=== PATIENT | male | born 1955 | race Caucasian/White ===

== ENCOUNTER → 2016-11-01 | Outpatient (CLI) | payer MEDICARE ==
[2016-11-01 12:47] VITALS: BP 113/78; PULSE 59; RESP 16; TEMP 98.2
--- NOTE | 2016-11-01 13:36 | P.PN ---
Subjective This is follow-up visit for this patient with a history of severe and chronic mid back pain secondary to the thoracic spondylosis, we have done interventional pain management injection, thoracic epidural steroid injections, and is currently on pain medications 1- Mobic 7.5 mg twice a day 2-[place] 5/325 every 6 hours Patient denies any side effects of the medication, denies excessive drowsiness or sleepiness, denies suicidal ideation, and reports that the current pain medication is NOT helping To control the pain and improve activity of daily living the VAS /10 without the medications ,and it drope to /10 with the medication Physical Examinations : 1-Constitutiona : Cooperative , not in acute distress . 2-HEENT : nech ; supple , no Lymphadenopathy , no Thyromegaly , normal thyroid size . eyes : no ptosis , no icterus, no photophobia . ENT : normal of hearing , normal oropharynx , no Thrush . 3- Respiratory : Chest clear to auscultations Bilaterally , no wheezing , no Rhonchi . 4- Cardiovascular : regular rate and rhythem , S1 , S2 , no S3 , no S4. 5- Gastrointestinal : abdomen soft no tenderness , bowel sounds positive all four quadrents , no organomegally . 6- Genitourinary : Defferred . 7- neurologic : Cranial nerve II to XII intact , no focal neurological deffecit . 8-psychatric : alert , oriented X 3 , appropriate affect , intact judgment and insight . 9-Lymphatic : no Lymphadenopathy . 10- musculoskeltal : exams of the thoracic spine = motor strength normal bilateral upper extremities facet loading test positive in the mid thoracic area area positive. exams of the Lumber spine = motor strength lower extremities ,thigh and legs .5/5 deep tendon reflexes : normal Knee Jerk , normal ankle Jerk . Assessment and plan = - Chronic mid back pain secondary toThoracic spondylosis with facet arthropathy without myelopathy , -chronic and current use of high-risk medication (Opioids). The patient was counseled about risk of opioid use, psychological risk associated with opioids and was orally counseled to not overuse , abuse , divert ,or sell dictations to take medications as prescribed only , and to restore medication in safe location , and patient counseled against driving while using narcotic medications, and also not to use alcohol or any illicit recreational drugs the patient's verbalized understanding that the lack of compliance will result in failure to renew narcotic prescription and possible discharge from the clinic - diagnoses, prognosis, and treatment options including but not limited to physical therapy, surgical interventions, interventional therapies and medication management including narcotics and adjuvant medication were discussed with the patient and all questions answered to the patient's satisfaction. -medication refile =1-Mobic 7.5 mg twice a day dispense 60 with 1 refill 2- [place] 7.5/325 every 6 hours dispensed 90 with 1 refill 3-start patient on Neurontin 100 mg every 8 hours dispense 90 with 1 refill Objective - Vital Signs Vital signs: Vital Signs Temp 98.2 F 11/01/16 12:40 Pulse 59 L 11/01/16 12:40 Resp 16 11/01/16 12:40 BP 113/78 11/01/16 12:40 Pulse Ox 97 11/01/16 12:40 Intake & Output 10/31/16 11/01/16 11/01/16 18:59 06:59 18:59 Weight 81.193 kg
== END | disposition home or self-care (01) ==
LOC: PNWHC3 12:23
PROVIDERS: ATTEND Specialist
DX: M47.894 Other spondylosis, thoracic region (principal); M46.94 Unspecified inflammatory spondylopathy, thoracic region; Z79.891 Long term (current) use of opiate analgesic
CPT/HCPCS: 99211

== ENCOUNTER 2020-08-21 07:58 | Day surgery (SDC) | payer MEDICARE ==
[2020-08-19 09:58] VITALS: BMI 30.2
--- NOTE | 2020-08-21 07:07 | P.GSHP ---
History of Present Illness H&P Date: 08/21/20 CHIEF COMPLAINT: Colon screen HISTORY OF PRESENT ILLNESS: The patient is a 65-year-old male who presents for colon screen. Lower endoscopy was offered for further evaluation and management. PAST MEDICAL HISTORY: Please see list. PAST SURGICAL HISTORY: Please see list. MEDICATIONS: Please see list. ALLERGIES: Please see list. SOCIAL HISTORY: No illicit drug use FAMILY HISTORY: No reports of Crohn disease or ulcerative colitis. REVIEW OF ORGAN SYSTEMS: CONSTITUTIONAL: No reports of fevers or chills. PHYSICAL EXAM: VITAL SIGNS: Stable GENERAL: Well-developed pleasant in no acute distress. HEENT: No scleral icterus. Extraocular movements grossly intact. Moist buccal mucosa. NECK: Supple without lymphadenopathy. CHEST: Unlabored respirations. Equal bilateral excursions. CARDIOVASCULAR: Regular rate and rhythm. Distal 2+ pulses. ABDOMEN: Soft, nontender, nondistended. MUSCULOSKELETAL: No clubbing, cyanosis, or edema. ASSESSMENT: 1. Colon screen. PLAN: 1. Recommend proceeding with a lower endoscopy Past Medical History Past Medical History: GERD/Reflux, Hyperlipidemia, Skin Disorder Additional Past Medical History / Comment(s): "rapid heart rate one time", fell in 2012 and landed on head- fx c1 and c2 and collapsed c5 , or c6, hiatal hernia, rash on fingers, recent infectiion on rt little toe-on rx, History of Any Multi-Drug Resistant Organisms: MRSA Date of last positivie culture/infection: 2009 MDRO Source:: finger Past Surgical History: Cardiac Ablation, Orthopedic Surgery Additional Past Surgical History / Comment(s): rt knee surgery , EGD with dilation, Pain Clinic Procedures Past Anesthesia/Blood Transfusion Reactions: No Reported Reaction Smoking Status: Former smoker - Past Family History Mother Family Medical History: No Reported History Medications and Allergies Home Medications Medication Instructions Recorded Confirmed Type Omeprazole [PriLOSEC] 20 mg PO DAILY 10/29/15 08/19/20 History Metoprolol Tartrate [Lopressor] 25 mg PO QAM 11/27/15 08/19/20 History Atorvastatin [Lipitor] 40 mg PO DAILY 08/19/20 08/19/20 History Hydrocodone/Acetaminophen [[place] 1 tab PO BID PRN 08/19/20 08/19/20 History 7.5-325] Meloxicam [Mobic] 7.5 mg PO BID PRN 08/19/20 08/19/20 History Sulfamethox-Tmp 800-160Mg [Bactrim 1 tab PO Q12HR 08/19/20 08/19/20 History DS 800-160 mg] Ubidecarenone [Co Q-10] 100 mg PO DAILY 08/19/20 08/19/20 History Allergies Allergy/AdvReac Type Severity Reaction Status Date / Time No Known Allergies Allergy Verified 08/19/20 09:45
[~2020-08-21 07:58] MED LIST: LACTATED RINGERS 1,000 ML IV SCH
[2020-08-21 08:21] VITALS: TEMP 97.3
[2020-08-21] MEDS ORDERED: PROPOFOL 10 MG/ML 20 ML VIAL IV ONE (09:07)
[2020-08-21] MEDS ORDERED: LIDOCAINE 1% INJ 10MG/ML (20 ML MDV) ONE (09:07)
--- NOTE | 2020-08-21 09:47 | P.PCN ---
Date of Procedure: 08/21/20 Description of Procedure: PREOPERATIVE DIAGNOSIS: Personal history of colon polyps POSTOPERATIVE DIAGNOSIS: Personal history of colon polyps Tubular adenoma descending colon Tubular adenoma sigmoid colon Sigmoid diverticulosis Internal hemorrhoids, grade 2 OPERATION: Colonoscopy to the ileocecal valve and appendiceal orifice, cecum Colonoscopy with cold forceps biopsies SURGEON: Nidia Abad MD. ANESTHESIA: MAC. INDICATIONS: The patient is an 65-year-old male who personal history of colon polyps. Last colonoscopy over 5 years. Benefits and risks were described and informed consent was obtained. DESCRIPTION OF PROCEDURE: The patient had undergone Suprep. He had been brought into the operating room and laid in the left lateral decubitus position. After adequate intravenous sedation, the rectum was examined with 2% lidocaine jelly. The prostate fossa was unremarkable. External hemorrhoids were encountered. The rectal tone was within normal limits. No lesions were palpated in the rectal vault. An Olympus colonoscope was advanced until the cecum, ileocecal valve and appendiceal orifice were clearly viewed. The prep was good. Sigmoid diverticulosis was encountered. Multiple colonic polyps were found. No evidence of focal colitis was found. Retroflexion of the scope demonstrated grade 2 internal hemorrhoids without active bleeding or inflammation. The colon was desufflated. The patient had tolerated the procedure well. Withdrawal time was over 6 minutes. FINDINGS: Aronchick preparation quality scale 1 (1-5) Internal hemorrhoids, grade 2 External hemorrhoids, grade 2 No arteriovenous malformations. Sigmoid diverticulosis Removal of 2 polyps: - Cold forceps biopsy at 20 cm from the anal verge, 4 mm polyp, sigmoid colon - Cold forceps biopsy at 40 cm from the anal verge, 5 mm polyp, descending colon No focal colitis. RECOMMENDATIONS: Repeat colonoscopy 3 years, 2022 Plan - Discharge Summary Discharge Rx Participant: No New Discharge Prescriptions: Continue Omeprazole [PriLOSEC] 20 mg PO DAILY Metoprolol Tartrate [Lopressor] 25 mg PO QAM Atorvastatin [Lipitor] 40 mg PO DAILY Sulfamethox-Tmp 800-160Mg [Bactrim DS 800-160 mg] 1 tab PO Q12HR Hydrocodone/Acetaminophen [[place] 7.5-325] 1 tab PO BID PRN PRN Reason: Pain Meloxicam [Mobic] 7.5 mg PO BID PRN PRN Reason: Pain Ubidecarenone [Co Q-10] 100 mg PO DAILY Discharge Medication List Omeprazole [PriLOSEC] 20 mg PO DAILY 10/29/15 [History] Metoprolol Tartrate [Lopressor] 25 mg PO QAM 11/27/15 [History] Atorvastatin [Lipitor] 40 mg PO DAILY 08/19/20 [History] Hydrocodone/Acetaminophen [[place] 7.5-325] 1 tab PO BID PRN 08/19/20 [History] Meloxicam [Mobic] 7.5 mg PO BID PRN 08/19/20 [History] Sulfamethox-Tmp 800-160Mg [Bactrim DS 800-160 mg] 1 tab PO Q12HR 08/19/20 [History] Ubidecarenone [Co Q-10] 100 mg PO DAILY 08/19/20 [History] Follow up Appointment(s)/Referral(s): Nidia Abad MD [STAFF PHYSICIAN] - As Needed Patient Instructions/Handouts: Colorectal Polyps (DC), Diverticulosis Diet (GEN), Diverticulosis (DC) Activity/Diet/Wound Care/Special Instructions: Repeat colonoscopy 3 years, 2022 Discharge Disposition: HOME SELF-CARE
[2020-08-21 10:07] VITALS: BP 120/81; PULSE 70; RESP 20
== END 2020-08-21 10:08 | disposition home or self-care (01) ==
LOC: ORWHC2ENDO 07:58
PROVIDERS: ATTEND Surgery Plastic and Reconstructive Surgery
DX: Z12.11 Encounter for screening for malignant neoplasm of colon (principal); D12.4 Benign neoplasm of descending colon; D12.5 Benign neoplasm of sigmoid colon; K57.30 Diverticulosis of large intestine without perforation or abscess without bleeding; K64.4 Residual hemorrhoidal skin tags; K64.1 Second degree hemorrhoids; Z86.010 Personal history of colon polyps; K21.9 Gastro-esophageal reflux disease without esophagitis; E78.5 Hyperlipidemia, unspecified; R21 Rash and other nonspecific skin eruption; L08.9 Local infection of the skin and subcutaneous tissue, unspecified; K44.9 Diaphragmatic hernia without obstruction or gangrene; Z87.81 Personal history of (healed) traumatic fracture; Z86.14 Personal history of Methicillin resistant Staphylococcus aureus infection; Z98.890 Other specified postprocedural states; Z87.891 Personal history of nicotine dependence; Z79.899 Other long term (current) drug therapy
CPT/HCPCS: 88305; 45380; J2001; J2704

== ENCOUNTER 2023-09-22 09:56 | Inpatient (IN) | payer MEDICARE ==
--- NOTE | 2023-09-22 10:17 | ED ---
Chest Pain HPI - General Source: patient Mode of arrival: ambulatory Limitations: no limitations <Rosmery Brasher - Last Filed: 09/22/23 10:14> <Scott Reyes - Last Filed: 09/22/23 13:40> - General Chief Complaint: Chest Pain Stated Complaint: thightness in chest, chest pain - History of Present Illness Initial Comments: The patient is a 68-year-old dominant presents emergency room sent in by his PCP Dr. Griffith for intermittent chest pain for the last week. Patient states it's worse with exertion. He has some mild exertional dyspnea. Patient started to develop congestion today but denies any significant cough, fever or hemoptysis. Had one episode of A. fib and has not had any further episodes since an ablation 10-15 years ago. Takes metoprolol. No radiologist (Rosmery Brasher) This is a 68-year-old male who has a weeklong history of chest pain. Patient states it is been intermittent and it seems to come on anytime he exerts himself even slightly. Patient states he also gets short of breath with it. Patient states he rests it seems to go away. About 2 days ago he started having a littl e bit of congestion and cough which is not related to chest pain. Patient denies fever chills. Patient states he has been a little more tired recently. Patient states sitting here currently is not having chest pain but if he exerts himself at all it comes on with shortness of breath per patient states earlier today he was just washing his dog which normally does not cause him any difficulty and he became very short of breath. Patient states at that time he also had chest pressure. Patient went to see his primary medical care doctor they sent him in the emergency department. Patient is chest pain-free currently. (Scott Reyes) - Related Data Home Medications Medication Instructions Recorded Confirmed Omeprazole [PriLOSEC] 20 mg PO DAILY 10/29/15 08/19/20 Metoprolol Tartrate [Lopressor] 25 mg PO QAM 11/27/15 08/19/20 Atorvastatin [Lipitor] 40 mg PO DAILY 08/19/20 08/19/20 Hydrocodone/Acetaminophen [[place] 1 tab PO BID PRN 08/19/20 08/19/20 7.5-325] Meloxicam [Mobic] 7.5 mg PO BID PRN 08/19/20 08/19/20 Sulfamethox-Tmp 800-160Mg [Bactrim 1 tab PO Q12HR 08/19/20 08/19/20 DS 800-160 mg] Ubidecarenone [Co Q-10] 100 mg PO DAILY 08/19/20 08/19/20 Allergies Allergy/AdvReac Type Severity Reaction Status Date / Time No Known Allergies Allergy Verified 09/22/23 10:14 Review of Systems ROS Other: All systems not noted in ROS Statement are negative. <Rosmery Brasher - Last Filed: 09/22/23 10:14> ROS Other: All systems not noted in ROS Statement are negative. <Scott Reyes - Last Filed: 09/22/23 13:40> ROS Statement: Those systems with pertinent positive or pertinent negative responses have been documented in the HPI. Past Medical History Past Medical History: GERD/Reflux, Hyperlipidemia, Skin Disorder Additional Past Medical History / Comment(s): "rapid heart rate one time", fell in 2012 and landed on head- fx c1 and c2 and collapsed c5 , or c6, hiatal hernia, rash on fingers, recent infectiion on rt little toe-on rx, History of Any Multi-Drug Resistant Organisms: MRSA Date of last positivie culture/infection: 2009 MDRO Source:: finger Past Surgical History: Cardiac Ablation, Orthopedic Surgery Additional Past Surgical History / Comment(s): rt knee surgery , EGD with dilation, Pain Clinic Procedures Past Anesthesia/Blood Transfusion Reactions: No Reported Reaction Past Psychological History: No Psychological Hx Reported Smoking Status: Former smoker Past Alcohol Use History: Occasional Past Drug Use History: Marijuana - Past Family History Mother Family Medical History: No Reported History <Rosmery Brasher - Last Filed: 09/22/23 10:14> General Exam Limitations: no limitations <Rosmery Brasher - Last Filed: 09/22/23 10:14> <Scott Reyes - Last Filed: 09/22/23 13:40> - General Exam Comments Initial Comments: Visual Physical Exam Vital signs reviewed General: Well-appearing, nontoxic, no acute distress. Head: Normocephalic, atraumatic Eyes: PERRLA, EOMI ENT: Airway patent, nasal congestion noted Chest: Nonlabored breathing Skin: No visual rash, normal skin tone Neuro: Alert and oriented 3 Musculoskeletal: No gross abnormalities (Rosmery Brasher) GENERAL: Patient is well-developed and well-nourished. Patient is nontoxic and well- hydrated and is in mild distress. ENT: Neck is soft and supple. No significant lymphadenopathy is noted. Oropharynx is clear. Moist mucous membranes. Neck has full range of motion without eliciting any pain. EYES: The sclera were anicteric and conjunctiva were pink and moist. Extraocular movements were intact and pupils were equal round and reactive to light. Eyelids were unremarkable. PULMONARY: Unlabored respirations. Good breath sounds bilaterally. No audible rales rhonchi or wheezing was noted. CARDIOVASCULAR: There is a regular rate and rhythm without any murmurs gallops or rubs. ABDOMEN: Soft and nontender with normal bowel sounds. SKIN: Skin is clear with no lesions or rashes and otherwise unremarkable. NEUROLOGIC: Patient is alert and oriented x3. Cranial nerves II through XII are grossly intact. Motor and sensory are also intact. Normal speech, volume and content. Symmetrical smile. MUSCULOSKELETAL: Normal extremities with adequate strength and full range of motion. LYMPHATICS: No significant lymphadenopathy is noted PSYCHIATRIC: Normal psychiatric evaluation. 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 (Rosmery Brasher) EKG was interpreted by myself. EKG shows a sinus bradycardia at 49 bpm WA interval 178 QRSs 81 Q-T intervals 4:30 QTC is 400. Patient's EKG shows no ST segment elevation or depression. Was pt. sent in by a medical professional or institution (, PA, CERAMIC COATER MACHINE, urgent care, hospital, or jail...) When possible be specific @ -Medical care doctor sent the patient and he seen in the emergency department Did you speak to anyone other than the patient for history (EMS, parent, family, police, friend...)? What history was obtained from this source @ -No Did you review nursing and triage notes (agree or disagree)? Why? @ -I reviewed and agree with nursing and triage notes Were old charts reviewed (outside hosp., previous admission, EMS record, old EKG, old radiological studies, urgent care reports/EKG's, jail records)? Report findings @ -I reviewed prior chart prior lab work. Differential Diagnosis (chest pain, altered mental status, abdominal pain women, abdominal pain men, vaginal bleeding, weakness, fever, dyspnea, syncope, headache, dizziness, GI bleed, back pain, seizure, CVA, palpatations, mental health, musculoskeletal)? @ -Differential Chest Pain: Stable Angina, Unstable Angina, STEMI, NSTEMI Aortic Dissection, Pneumothorax, Musculoskeletal, Esophageal Spasm GERD, Cholecystitis, Pancreatitis, Zoster, this is not meant to be an all-inclusive list. EKG interpreted by me (3pts min.). @ -As above X-rays interpreted by me (1pt min.). @ -Chest x-ray shows no acute abnormality CT interpreted by me (1pt min.). @ -None done U/S interpreted by me (1pt. min.). @ -None done What testing was considered but not performed or refused? (CT, X-rays, U/S, labs)? Why? @ -None What meds were considered but not given or refused? Why? @ -None Did you discuss the management of the patient with other professionals (professionals i.e. , PA, CERAMIC COATER MACHINE, lab, RT, psych nurse, social media specialist, flight engineer inspector, teacher, building drafting officer, bilingual patient support caseworker)? Give summary @ -I spoke with Dr. Leon and he agreed to admit the patient Was smoking cessation discussed for >3mins.? @ -No Was critical care preformed (if so, how long)? @ -No Were there social determinants of health that impacted care today? How? (Homelessness, low income, unemployed, alcoholism, drug addiction, transportation, low edu. Level, literacy, decrease access to med. care, [facility], rehab)? @ -No Was there de-escalation of care discussed even if they declined (Discuss DNR or withdrawal of care, Hospice)? DNR status @ -No What co-morbidities impacted this encounter? (DM, HTN, Smoking, COPD, CAD, Cancer, CVA, ARF, Chemo, Hep., AIDS, mental health diagnosis, sleep apnea, morbid obesity)? @ -None Was patient admitted / discharged? Hospital course, mention meds given and route, prescriptions, significant lab abnormalities, going to OR and other pertinent info. @ -Patient had COVID positive test here in the emergency department however he states those symptoms. Because patient stated the chest pain and shortness of breath was with exertion and ongoing well before the cold symptoms started I felt like the patient should be brought in and evaluated for his chest pain separate from his COVID diagnosis. I spoke with Dr. Hunt he agreed to admit the patient admitted the patient wrote admitting orders Undiagnosed new problem with uncertain prognosis? @ -No Drug Therapy requiring intensive monitoring for toxicity (Heparin, Nitro, Insulin, Cardizem)? @ -No Were any procedures done? @ -No Diagnosis/symptom? @ -Chest pain Acute, or Chronic, or Acute on Chronic? @ -Acute Uncomplicated (without systemic symptoms) or Complicated (systemic symptoms)? @ -Complicated Side effects of treatment? @ -No Exacerbation, Progression, or Severe Exacerbation? @ -No Poses a threat to life or bodily function? How? (Chest pain, [place], [place], pneumonia, PE, COPD, DKA, ARF, appy, cholecystitis, CVA, Diverticulitis, Homicidal, Suicidal, threat to staff... and all critical care pts) @ -Yes this could be due to an [place] and this could cause end organ dysfunction Diagnosis/symptom? @ -COVID Acute, or Chronic, or Acute on Chronic? @ -Acute Uncomplicated (without systemic symptoms) or Complicated (systemic symptoms)? @ -complicated Side effects of treatment? @ -none Exacerbation, Progression, or Severe Exacerbation] @ -no Poses a threat to life or bodily function? @ -no (Scott Reyes) Disposition <Rosmery Brasher - Last Filed: 09/22/23 10:14> Time of Disposition: 13:24 <Scott Reyes - Last Filed: 09/22/23 13:40> Clinical Impression: Chest pain, COVID-19 Disposition: ADMITTED IP TO THIS HOSP Referrals: Robert Griffith DO [Primary Care Provider] - 1-2 days
--- NOTE | 2023-09-22 10:52 | XR ---
EXAMINATION TYPE: XR chest 2V DATE OF EXAM: 09/22/2023 COMPARISON: 10/17/2013 HISTORY: Chest pain TECHNIQUE: Frontal and lateral views of the chest are obtained. FINDINGS: There is no focal air space opacity. No evidence for pneumothorax. No pleural effusion. The cardiac silhouette size is within normal limits. The osseous structures are grossly intact. IMPRESSION: 1. No acute cardiopulmonary process.
[2023-09-22 11:01] LABS: Basophils % (A) 0 %; Eosinophils # (A) 0.1 k/uL (0-0.7); Eosinophils % (A) 1 %; HCT 42.5 % (39.0-53.0); HGB 15.2 gm/dL (13.0-17.5); Lymphocytes # (A) 3.3 k/uL (1.0-4.8); Lymphocytes % (A) 28 %; MCH 33.3 pg (25.0-35.0); MCHC 35.8 g/dL (31.0-37.0); Monocytes # (A) 1.2 k/uL (0-1.0); Monocytes % (A) 10 %; Neutrophils # (A) 7.1 k/uL (1.3-7.7); Neutrophils % (A) 60 %; Platelet Count 275 k/uL (150-450); RBC 4.57 m/uL (4.30-5.90); RDW 12.2 % (11.5-15.5)
[2023-09-22 11:07] LABS: ALT 36 U/L (4-49); AST 38 U/L (17-59); African American GFR (CKD) >90 (>60 ml/min/1.73 sqM); Albumin 4.2 g/dL (3.5-5.0); Alkaline Phosphatase 60 U/L (38-126); Anion Gap 13 mmol/L; Blood Urea Nitrogen 19 mg/dL (9-20); Calcium 8.9 mg/dL (8.4-10.2); Carbon Dioxide 23 mmol/L (22-30); Chloride 102 mmol/L (98-107); Glucose 87 mg/dL (74-99); Non-African American GFR(CKD) >90 (>60 ml/min/1.73 sqM); Potassium 4.1 mmol/L (3.5-5.1); Sodium 138 mmol/L (137-145); Total Bilirubin 0.6 mg/dL (0.2-1.3)
[2023-09-22 11:15] LABS: NT-Pro-B-Type Natriuretic Pept 167 pg/mL
[2023-09-22] MEDS ORDERED: NITROGLYCERIN SL TABS 0.4 MG TAB SUBLINGUAL PRN (13:24)
[2023-09-22] MEDS ORDERED: IPRATROPIUM-ALBUTEROL 3 ML NEB INHALATION PRN (14:29)
--- NOTE | 2023-09-22 14:29 | P.HPIM ---
History of Present Illness H&P Date: 09/22/23 History of present illness; patient is 68-year-old gentleman with past medical h istory significant for atrial fibrillation status post ablation, hypertension from the ER for intermittent chest pressure and exertional dyspnea. Patient stated that for the last few weeks he has been noticing that he gets short of breath on exertion, patient states that going up a flight of stairs gets him totally winded. At that time of exertion,patient also notices that there is a chest pressure which is central in location, nonradiating, aggravated by exertion and no relieving factors associated with this chest pressure. Patient denies any complaint of palpitations. Denies any orthopnea or PND. There is no swelling of any feet. For the last 2 days patient has been noticing some chest congestion but denied any fever or chills. Because of these symptoms, patient presented to the PCP office who sent him to the ER. Initial lab work done in the ER showed WBC 12, hemoglobin 15.2, platelet count 275, sodium 138, potassium 4.1, BUNs 19, creatinine 0.67, AST 38, AST 36 Influenza A not detected Influenza B not detected RSV not detected COVID-19 detected Chest x-ray done in the ER showed no acute cardiopulmonary process Patient admitted to internal medicine service REVIEW OF SYSTEMS: CONSTITUTIONAL: No fever, no malaise, no fatigue. HEENT: No recent visual problems or hearing problems. Denied any sore throat. CARDIOVASCULAR: As mentioned in HPI PULMONARY: As mentioned in HPI GASTROINTESTINAL: No diarrhea, no nausea, no vomiting, no abdominal pain. NEUROLOGICAL: No headaches, no weakness, no numbness. HEMATOLOGICAL: Denies any bleeding or petechiae. GENITOURINARY: Denies any burning micturition, frequency, or urgency. MUSCULOSKELETAL/RHEUMATOLOGICAL: Denies any joint pain, swelling, or any muscle pain. ENDOCRINE: Denies any polyuria or polydipsia. The rest of the 14-point review of systems is negative. PHYSICAL EXAMINATION: GENERAL: The patient is alert and oriented x3, not in any acute distress. Well developed, well nourished. HEENT: Pupils are round and equally reacting to light. EOMI. No scleral icterus. No conjunctival pallor. Normocephalic, atraumatic. No pharyngeal erythema. No thyromegaly. CARDIOVASCULAR: S1 and S2 present. No murmurs, rubs, or gallops. PULMONARY: Chest is clear to auscultation, no wheezing or crackles. ABDOMEN: Soft, nontender, nondistended, normoactive bowel sounds. No palpable organomegaly. MUSCULOSKELETAL: No joint swelling or deformity. EXTREMITIES: No cyanosis, clubbing, or pedal edema. NEUROLOGICAL: Gross neurological examination did not reveal any focal deficits. SKIN: No rashes. Assessment and plan COVID-19 infection Exertional dyspnea Chest pain History of atrial fibrillation Monitor vital signs Monitor CBC Monitor CMP Continue telemetry monitoring Monitor troponins Ordered 2-D echo Encourage use of I-S Aggressive pulmonary hygiene Continue COVID-19 isolation Resume home meds Consult cardiology Labs and medication were reviewed.. Continue same treatment. Continue with symptomatic treatment. Resume home medication. Monitor labs and vitals. DVT and GI prophylaxis. Further recommendations as per clinical course of the patient Dictation was produced using [employer] dictation software. please excuse any grammatical, word or spelling errors. Past Medical History Past Medical History: GERD/Reflux, Hyperlipidemia, Skin Disorder Additional Past Medical History / Comment(s): "rapid heart rate one time", fell in 2012 and landed on head- fx c1 and c2 and collapsed c5 , or c6, hiatal hernia, rash on fingers, recent infectiion on rt little toe-on rx, History of Any Multi-Drug Resistant Organisms: MRSA Date of last positivie culture/infection: 2009 MDRO Source:: finger Past Surgical History: Cardiac Ablation, Orthopedic Surgery Additional Past Surgical History / Comment(s): rt knee surgery , EGD with dilation, Pain Clinic Procedures Past Anesthesia/Blood Transfusion Reactions: No Reported Reaction Past Psychological History: No Psychological Hx Reported Smoking Status: Former smoker Past Alcohol Use History: Occasional Past Drug Use History: Marijuana - Past Family History Mother Family Medical History: No Reported History Medications and Allergies Home Medications Medication Instructions Recorded Confirmed Type Omeprazole [PriLOSEC] 20 mg PO DAILY 10/29/15 08/19/20 History Metoprolol Tartrate [Lopressor] 25 mg PO QAM 11/27/15 08/19/20 History Atorvastatin [Lipitor] 40 mg PO DAILY 08/19/20 08/19/20 History Hydrocodone/Acetaminophen [[place] 1 tab PO BID PRN 08/19/20 08/19/20 History 7.5-325] Meloxicam [Mobic] 7.5 mg PO BID PRN 08/19/20 08/19/20 History Sulfamethox-Tmp 800-160Mg [Bactrim 1 tab PO Q12HR 08/19/20 08/19/20 History DS 800-160 mg] Ubidecarenone [Co Q-10] 100 mg PO DAILY 08/19/20 08/19/20 History Allergies Allergy/AdvReac Type Severity Reaction Status Date / Time No Known Allergies Allergy Verified 09/22/23 10:14 Physical Exam Vitals: Vital Signs Temp Pulse Pulse Resp BP Pulse Ox 09/22/23 12:57 55 L 09/22/23 10:01 97.8 F 56 L 18 140/91 97 Intake and Output 09/21/23 09/22/23 09/22/23 22:59 06:59 14:59 Other: Weight 81.647 kg Results CBC & Chem 7: 09/22/23 10:41 09/22/23 10:41 Labs: Abnormal Lab Results - Last 24 Hours (Table) 09/22/23 09/22/23 Range/Units 10:40 10:41 WBC 12.0 H (3.8-10.6) k/uL Monocytes # 1.2 H (0-1.0) k/uL SARS-CoV-2 (PCR) Detected A (Not Detectd)
[2023-09-22] MEDS: NITROGLYCERIN OINT 1 INCH/GM PACKET TOPICAL SCH (17:16)
[2023-09-22] MEDS ORDERED: ALBUTEROL HFA INHALER INHALATION PRN (20:00)
[2023-09-22] MEDS: guaiFENesin 600 MG TABLET.ER PO SCH (21:48)
[2023-09-23] MEDS: NITROGLYCERIN OINT 1 INCH/GM PACKET TOPICAL SCH ×5 (01:40→21:45)
[2023-09-23] MEDS ORDERED: CAFFEINE CITRATE 60 MG/3 ML VIAL IV PRN (08:07)
[2023-09-23] MEDS ORDERED: AMINOPHYLLINE 500 MG/20 ML VIAL IV PRN (08:07)
[2023-09-23] MEDS ORDERED: REGADENOSON 0.4 MG/5 ML SYRINGE IV PRN (08:07)
[2023-09-23 09:13] LABS: Chol/HDL Ratio 3.26 Ratio; LDL Cholesterol,Calculated 71.5 mg/dL (0.0-131.0)
--- NOTE | 2023-09-23 09:45 | P.CRDCN ---
History of Present Illness Consult date: 09/23/23 Consult reason: chest pain History of present illness: History of present illness: This is a 68-year-old male patient with past medical history of dyslipidemia, SVT status post radiofrequency ablation. Patient was seen in the office by Dr. DALY Renteria in 2016 on 1 occasion following SVT radiofrequency ablation. We have been asked to evaluate the patient for chest pain. Patient denies any recent cardiac workup. He was seen by his PCP yesterday and sent to the hospital. Patient states that he developed chest pain about one week ago was happening when he had little activity. He also has some minimal shortness of breath. He states he never had this before but he's been having about 1 time every day. It does come on with activity. He states he's had a cough for a couple of days. No fever, no generalized malaise. The pain is coming and going but not worse with movement or deep breathing. He has remote history of tobacco use, he drinks alcohol frequently. He also smokes marijuana. EKG sinus rhythm with no acute changes Chest x-ray: No acute process. WBC 12, hemoglobin 15.2, platelet count 275. CMP within normal limits. Tr oponin negative 3. A1c 5.6. Influenza A, influenza B, RSV not detected. Covid 19 detected. Triglycerides 152, cholesterol 147, LDL 71, HDL 45. Home cardiac medications: Metoprolol tartrate 25 mg daily, Crestor 20 mg daily. Review Of Systems: At the time of my exam: CONSTITUTIONAL: Denies fever or chills. CARDIOVASCULAR: Denies chest pain, Denies shortness of breath, no orthopnea, PND or palpitations. RESPIRATORY: Denies cough. GASTROINTESTINAL: Denies abdominal pain, diarrhea, constipation, nausea or vomiting. MUSCULOSKELETAL: Denies myalgias. NEUROLOGIC: Denies numbness, tingling or weakness. ENDOCRINE: Denies fatigue, weight change, polydipsia or polyurina. GENITOURINARY: Denies burning, hematuria or urgency with micturation. HEMATOLOGIC: Denies history of anemia or bleeding. Physical examination: Gen: This is a 68-year-old male resting in the edge of the bed and appears to be comfortable and in no acute distress. VS: reviewed HEENT: Head is atraumatic, normocephalic. Pupils equal, round. Sclerae is anicteric. NECK: Supple. No JVD. LUNGS: Clear to auscultation. No wheezes or rhonchi. No intercostal retractions. HEART: Regular rate and rhythm. No murmur. ABDOMEN: Soft No tenderness. EXTREMITIES: No pedal edema. No calf tenderness. NEUROLOGICAL: Patient is awake, alert and oriented x3. Assessment: Chest pain concerning for underlying coronary artery disease, acute coronary syndrome ruled out Covid 19 History of SVT status post radiofrequency ablation Dyslipidemia Plan: Continue patient's home cardiac medications Obtain Lexiscan Cardiolite stress test. Obtain limited 2-D echocardiogram and Doppler study to assess cardiac structure and function If above testing is within normal limits, patient is cleared for discharge home and may follow-up in the office in 2 weeks. Thank you kindly for this consultation. Nurse practitioner note has been reviewed, I agree with documented findings and plan of care. Patient was seen and examined. Past Medical History Past Medical History: GERD/Reflux, Hyperlipidemia, Skin Disorder Additional Past Medical History / Comment(s): "rapid heart rate one time", fell in 2012 and landed on head- fx c1 and c2 and collapsed c5 , or c6, hiatal hernia, rash on fingers, recent infectiion on rt little toe-on rx, History of Any Multi-Drug Resistant Organisms: MRSA Date of last positivie culture/infection: 2009 MDRO Source:: finger Past Surgical History: Cardiac Ablation, Orthopedic Surgery Additional Past Surgical History / Comment(s): rt knee surgery , EGD with dilation, Pain Clinic Procedures Past Anesthesia/Blood Transfusion Reactions: No Reported Reaction Past Psychological History: No Psychological Hx Reported Smoking Status: Former smoker Past Alcohol Use History: Occasional Additional Past Alcohol Use History / Comment(s): quit smoking 30 yrs ago, smoked < 1PPD "for a couple years" Past Drug Use History: Marijuana Additional Drug Use History / Comment(s): occ use - Past Family History Mother Family Medical History: No Reported History Medications and Allergies Home Medications Medication Instructions Recorded Confirmed Type Omeprazole [PriLOSEC] 20 mg PO DAILY 10/29/15 09/22/23 History Metoprolol Tartrate [Lopressor] 25 mg PO DAILY 11/27/15 09/22/23 History Meloxicam [Mobic] 7.5 mg PO DAILY 08/19/20 09/22/23 History Hydrocodone/Acetaminophen 1 tab PO BID 09/22/23 09/22/23 History [Hydrocodone/Acetaminophen 10-300 mg] Multivitamins, Thera [Multivitamin 1 tab PO DAILY 09/22/23 09/22/23 History (formulary)] Rosuvastatin [Crestor] 20 mg PO DAILY 09/22/23 09/22/23 History Allergies Allergy/AdvReac Type Severity Reaction Status Date / Time No Known Allergies Allergy Verified 09/22/23 14:54 Physical Exam Vitals: Vital Signs Temp Pulse Pulse Pulse Resp BP BP 09/23/23 02:06 61 66 16 09/23/23 01:27 98.2 F 61 98/59 09/22/23 21:45 98.2 F 66 16 99/56 09/22/23 18:43 68 18 123/99 09/22/23 17:13 56 L 15 109/79 09/22/23 14:33 53 L 21 144/92 09/22/23 12:57 55 L 09/22/23 10:01 97.8 F 56 L 18 140/91 Pulse Ox 09/23/23 02:06 09/23/23 01:27 94 L 09/22/23 21:45 97 09/22/23 18:43 95 09/22/23 17:13 97 09/22/23 14:33 98 09/22/23 12:57 09/22/23 10:01 97 Intake and Output 09/22/23 09/23/23 09/23/23 22:59 06:59 14:59 Other: Voiding Method Toilet # Voids 1 1 Weight 81.647 kg Results 09/22/23 10:41 09/22/23 10:41 Cardiac Enzymes 09/22/23 09/22/23 09/22/23 Range/Units 10:41 10:41 14:17 AST 38 (17-59) U/L Troponin I 0.021 0.017 (0.000-0.034) ng/mL 09/22/23 Range/Units 17:30 AST (17-59) U/L Troponin I 0.014 (0.000-0.034) ng/mL CBC 09/22/23 Range/Units 10:41 WBC 12.0 H (3.8-10.6) k/uL RBC 4.57 (4.30-5.90) m/uL Hgb 15.2 (13.0-17.5) gm/dL Hct 42.5 (39.0-53.0) % Plt Count 275 (150-450) k/uL Comprehensive Metabolic Panel 09/22/23 Range/Units 10:41 Sodium 138 (137-145) mmol/L Potassium 4.1 (3.5-5.1) mmol/L Chloride 102 (98-107) mmol/L Carbon Dioxide 23 (22-30) mmol/L BUN 19 (9-20) mg/dL Creatinine 0.67 (0.66-1.25) mg/dL Glucose 87 (74-99) mg/dL Calcium 8.9 (8.4-10.2) mg/dL AST 38 (17-59) U/L ALT 36 (4-49) U/L Alkaline Phosphatase 60 (38-126) U/L Total Protein 7.0 (6.3-8.2) g/dL Albumin 4.2 (3.5-5.0) g/dL Current Medications Generic Name Dose Route Start Last Admin Trade Name Freq PRN Reason Stop Dose Admin Albuterol Sulfate 2 puff 09/22/23 20:00 09/22/23 20:10 Albuterol Hfa Inhaler INHALATION 2 puff RT-QID PRN Administration Shortness Of Breath Aspirin 325 mg 09/23/23 09:00 Aspirin 325 Mg Tab PO DAILY GEOVANNY Guaifenesin 600 mg 09/22/23 21:00 09/22/23 21:48 Guaifenesin 600 Mg Tablet.Er PO 600 mg Q12HR GEOVANNY Administration Nitroglycerin 0.4 mg 09/22/23 13:24 Nitroglycerin Sl Tabs 0.4 Mg Tab SUBLINGUAL Q5M PRN Chest Pain Nitroglycerin 1 inch 09/22/23 18:00 09/23/23 06:19 Nitroglycerin Oint 1 Inch/Gm Packet TOPICAL 1 inch Q6HR GEOVANNY Administration Intake and Output 09/22/23 09/23/23 09/23/23 22:59 06:59 14:59 Other: Voiding Method Toilet # Voids 1 1 Weight 81.647 kg 09/22/23 10:41 09/22/23 10:41
[2023-09-23] MEDS: METOPROLOL TARTRATE 25 MG TAB PO SCH (10:04)
--- NOTE | 2023-09-23 12:05 | CA ---
Transthoracic Echo Report Name: Bar Toledo Age: 68 Gender: M : 1955 Exam Date: 09/23/2023 09:24 Exam Location: [facility] Ht (in): 65 Wt (lb): 180 Ordering Physician: Kristian Leon MD Attending/Referring Phys: Business Librarian Khadra Hoang RDCS Procedure CPT: Indications: dyspnea Cardiac Hx: Technical Quality: Fair Contrast 1: Definity Total Dose (mL): 1 Contrast 2: Total Dose (mL): MEASUREMENTS (Male / Female) Normal Values DOPPLER TR Peak Velocity 232.5 cm/s TR Peak Gradient 21.6 mmHg Right Ventricular Systolic Press 26.4 mmHg FINDINGS Left Ventricle Left ventricular ejection fraction is estimated at 60-65 %. No obvious regional wall motion abnormalities. Right Ventricle Right ventricular systolic pressure within normal limits. Right Atrium Left Atrium Mitral Valve Structurally normal mitral valve. No mitral stenosis, regurgitation or prolapse. Mitral annular calcification. Aortic Valve Trileaflet aortic valve. No aortic valve stenosis or regurgitation. Tricuspid Valve Structurally normal tricuspid valve. Mild tricuspid regurgitation. Pulmonic Valve Structurally normal pulmonic valve. Trace pulmonic regurgitation. Pericardium No pericardial effusion. Aorta CONCLUSIONS Limited echo due to COVID +ve patient No obvious regional wall motion abnormalities. Left ventricular ejection fraction is estimated at 60-65 %. No significant valvular dysfunction No pericardial effusion Previewed by: Dr Akira Escamilla (Electronically Signed) Final Date: 23 September 2023 12:04
--- NOTE | 2023-09-23 12:07 | CA ---
Lexiscan Nuclear Stress Test Report Name: Bar Toledo Exam Date: 09/23/2023 11:16 Exam Location: [facility] Ht (in): 65 Wt (lb): 185 BSA: 1.91 Ordering Phys: Neeraj Rey Referring Phys: NEERAJ REY,, Technologist: AMY DESAI Age: 68 Gender: M : 1955 Procedure CPT: Indications: Reflex order-Stress test ICD-10 Codes: Patient History: CP, CHASE, PALP, HTN, CHOL, FAMILY HX Medications: SEE CHART Meds past 24 hrs: Pretest Chest Pain: STRESS TEST Lexiscan Protocol Exercise Duration (min:sec): 02:[address] Depressions (mm): Angina Score: Smith Score: Resting HR (bpm): 60 Peak HR (bpm): 106 Resting BP (mmHg): 117 / 62 Peak BP (mmHg): 131 / 66 MPHR: 151 Target HR: 128 % MPHR: 70 METS: 1.0 Total Dose: Peak Dose: Atropine: Double Product: 61452 BP Response: Stress Termination: END OF DOSAGE Stress Symptoms: ASYMPTOMATIC Stress Summary: ECG ANALYSIS Resting ECG: Normal sinus rhythm, normal ECG, heart rate 63 bpm Stress ECG: No significant ST-T wave changes diagnostic for ischemia by ST segment analysis Lexiscan infusion. There were no sustained arrhythmias or ectopic beats. CONCLUSIONS Nonischemic ECG and normal hemodynamic response to Lexiscan infusion. Next Overall normal ECG portion of nuclear stress test. Please refer to the nuclear imaging portion of the stress test for complete interpretation of this study Dr Akira Escamilla (Electronically Signed) Final Date: 23 September 2023 12:06
[2023-09-23] MEDS: guaiFENesin 600 MG TABLET.ER PO SCH ×2 (12:52→20:33)
[2023-09-23] MEDS: ASPIRIN 325 MG TAB PO SCH (12:52)
[2023-09-23] MEDS: PANTOPRAZOLE 40 MG TABLET PO SCH (12:52)
[2023-09-23] MEDS: ATORVASTATIN 40 MG TAB PO SCH (12:52)
[2023-09-23] MEDS: HYDROcodone/APAP 10-325MG 1 EACH TAB PO SCH ×2 (12:52→20:33)
--- NOTE | 2023-09-23 13:26 | NM ---
EXAMINATION TYPE: NM stress lexiscan cardiolite DATE OF EXAM: 09/23/2023 COMPARISON: NONE CLINICAL INDICATION: Male, 68 years old with history of CP; TECHNIQUE: After the intravenous administration of 10.2 mCi Tc 99m Sestamibi - Cardiolite resting SP ECT images acquired 45 minutes post injection. The patient received 0.4mg Lexiscan, 24.5 mCi Tc 99m Sestamibi - Stress images obtained [address] injection FINDINGS: Review of stress and rest SPECT images demonstrates stress-induced reversible ischemia involving the apex and anteroapical myocardium.. Gated analysis shows normal wall motion with an estimated left ve ntricular ejection fraction of 58 %. IMPRESSION: Stress-induced reversible ischemia apex and apical anterior myocardium. Report called to the patients nurse at 1:21 PM 09/23/2023.
[2023-09-23] MEDS ORDERED: ATORVASTATIN 40 MG TAB PO STA (13:33)
[2023-09-23] MEDS ORDERED: ALPRAZolam 0.5 MG TAB PO PRN (13:33)
[2023-09-23] MEDS ORDERED: ASPIRIN 325 MG TAB PO STA (13:33)
[2023-09-23] MEDS ORDERED: ALPRAZolam 0.25 MG TAB PO PRN (13:33)
[2023-09-23] MEDS ORDERED: NITROGLYCERIN SL TABS 0.4 MG TAB SUBLINGUAL PRN (13:33)
[2023-09-24] MEDS: NITROGLYCERIN OINT 1 INCH/GM PACKET TOPICAL SCH ×5 (03:27→22:14)
[2023-09-24] MEDS: PANTOPRAZOLE 40 MG TABLET PO SCH (05:39)
[2023-09-24] MEDS ORDERED: HEPARIN SODIUM,PORCINE 10,000 UNIT in SODIUM CHLORIDE 0.9% 1,000 ML IRRIGATION PRN ×6 (07:00)
[2023-09-24] MEDS ORDERED: HEPARIN SODIUM,PORCINE (1 ML) 2,500 UNIT in SODIUM CHLORIDE 0.9% 250 ML IRRIGATION PRN ×6 (07:00)
[2023-09-24] MEDS ORDERED: ASPIRIN 325 MG TAB PO STA ×2 (09:19→09:21)
[2023-09-24] MEDS ORDERED: ATORVASTATIN 80 MG TAB PO STA (09:19)
[2023-09-24] MEDS ORDERED: NITROGLYCERIN SL TABS 0.4 MG TAB SUBLINGUAL PRN ×3 (09:19→16:34)
[2023-09-24] MEDS ORDERED: ALPRAZolam 0.25 MG TAB PO PRN ×2 (09:19→09:21)
[2023-09-24] MEDS ORDERED: ALPRAZolam 0.5 MG TAB PO PRN ×2 (09:19→09:21)
[2023-09-24] MEDS: guaiFENesin 600 MG TABLET.ER PO SCH ×2 (09:35→20:44)
[2023-09-24] MEDS: MULTIVITAMINS, THERA 1 EACH TAB PO SCH (09:35)
[2023-09-24] MEDS: METOPROLOL TARTRATE 25 MG TAB PO SCH (09:35)
[2023-09-24] MEDS: HYDROcodone/APAP 10-325MG 1 EACH TAB PO SCH ×2 (09:41→20:44)
[2023-09-24] MEDS: ATORVASTATIN 40 MG TAB PO SCH (11:00)
--- NOTE | 2023-09-24 11:54 | P.PN ---
Subjective Progress Note Date: 09/24/23 History of present illness: This is a 68-year-old male patient with past medical history of dyslipidemia, SVT status post radiofrequency ablation. Patient was seen in the office by Dr. DALY Renteria in 2016 on 1 occasion following SVT radiofrequency ablation. We have been asked to evaluate the patient for chest pain. Patient denies any recent cardiac workup. He was seen by his PCP yesterday and sent to the hospital. Patient states that he developed chest pain about one week ago was happening when he had little activity. He also has some minimal shortness of breath. He states he never had this before but he's been having about 1 time every day. It does come on with activity. He states he's had a cough for a couple of days. No fever, no generalized malaise. The pain is coming and going but not worse with movement or deep breathing. He has remote history of tobacco use, he drinks alcohol frequently. He also smokes marijuana. EKG: sinus rhythm with no acute changes Chest x-ray: No acute process. WBC 12, hemoglobin 15.2, platelet count 275. CMP within normal limits. Troponin negative 3. A1c 5.6. Influenza A, influenza B, RSV not detected. Covid 19 detected. Triglycerides 152, cholesterol 147, LDL 71, HDL 45. Home cardiac medications: Metoprolol tartrate 25 mg daily, Crestor 20 mg daily. 09/24/2023 Lexiscan stress test revealed stress-induced reversible ischemia apex and apical anterior myocardium. Echocardiogram with EF 6065 %, no significant valvular dysfunction. He reports that he is feeling okay today just mild congestion. He still has ch est pain that is worse with exertion that has been going on for the past 7-10 days. He is concerned because he had dental implants on Tuesday and has not had his prescribed mouth wash regimen, he denies any bleeding issues from the implants. Physical examination: Gen: This is a 68-year-old male resting in the chair and appears to be comfortable and in no acute distress. VS: reviewed HEENT: Head is atraumatic, normocephalic. Pupils equal, round. Sclerae is anicteric. NECK: Supple. No JVD. LUNGS: Clear to auscultation. No wheezes or rhonchi. No intercostal retractions. HEART: Regular rate and rhythm. No murmur. ABDOMEN: Soft No tenderness. EXTREMITIES: No pedal edema. No calf tenderness. NEUROLOGICAL: Patient is awake, alert and oriented x3. Assessment: Chest pain concerning for underlying coronary artery disease and unstable angina Covid 19 section, mild symptoms History of SVT status post radiofrequency ablation Dyslipidemia Abnormal stress test Plan: Stress testing was abnormal and patient has symptoms concerning for unstable angina, recommend proceeding with left heart catheterization and possible intervention. Risks and benefits of procedure were discussed and patient agrees to proceed. Keep patient nothing by mouth and we'll plan for heart cath this afternoon. Further recommendations pending heart cath results. We will follow. Nurse practitioner note has been reviewed, I agree with documented findings and plan of care. Patient was seen and examined. Objective - Vital Signs Vital signs: Vital Signs Temp 98.5 F 09/24/23 07:00 Pulse 70 09/24/23 07:00 Resp 16 09/24/23 07:00 BP 151/88 09/24/23 07:00 Pulse Ox 97 09/24/23 07:00 FiO2 Intake & Output 09/23/23 09/24/23 09/24/23 18:59 06:59 18:59 Intake Total 358 240 Balance 358 240 Intake: Oral 358 240 Other: Voiding Method Toilet # Voids 2 2 - Labs CBC & Chem 7: 09/22/23 10:41 09/22/23 10:41
[2023-09-24] MEDS ORDERED: LIDOCAINE 1% INJ 10MG/ML (20 ML MDV) ONE (12:36)
[2023-09-24] MEDS ORDERED: HEPARIN SODIUM 1,000 UN/ML (10ML VL) ONE (12:36)
[2023-09-24] MEDS ORDERED: fentaNYL (PF) 50 MCG/ML 2 ML AMP ONE (12:36)
[2023-09-24] MEDS ORDERED: VERAPAMIL 2.5 MG/ML 2 ML AMP ONE ×2 (12:36→13:00)
[2023-09-24] MEDS ORDERED: IV FLUID CONTINUATION 1,000 ML IV ONE (12:48)
--- NOTE | 2023-09-24 12:52 | P.PN ---
Subjective Progress Note Date: 09/23/23 patient is 68-year-old gentleman with past medical history significant for atrial fibrillation status post ablation, hypertension from the ER for intermittent chest pressure and exertional dyspnea. Patient stated that for the last few weeks he has been noticing that he gets short of breath on exertion, patient states that going up a flight of stairs gets him totally winded. At that time of exertion,patient also notices that there is a chest pressure which is central in location, nonradiating, aggravated by exertion and no relieving factors associated with this chest pressure. Patient denies any complaint of palpitations. Denies any orthopnea or PND. There is no swelling of any feet. For the last 2 days patient has been noticing some chest congestion but denied any fever or chills. Because of these symptoms, patient presented to the PCP office who sent him to the ER. Initial lab work done in the ER showed WBC 12, hemoglobin 15.2, platelet count 275, sodium 138, potassium 4.1, BUNs 19, creatinine 0.67, AST 38, AST 36 Influenza A not detected Influenza B not detected RSV not detected COVID-19 detected Chest x-ray done in the ER showed no acute cardiopulmonary process Patient admitted to internal medicine service 09/23. Patient seen and examined. No further episodes of chest pain, scheduled for stress test today REVIEW OF SYSTEMS: CONSTITUTIONAL: No fever, no malaise,. CARDIOVASCULAR: No chest pain, no palpitations, no syncope. PULMONARY: No shortness of breath, no cough, GASTROINTESTINAL: No diarrhea, no nausea, no vomiting, no abdominal pain. NEUROLOGICAL: No headaches, no weakness, PHYSICAL EXAMINATION: GENERAL: The patient is alert and oriented x3, not in any acute distress. Well developed, well nourished. HEENT: Pupils are round and equally reacting to light. EOMI. No scleral icterus. No conjunctival pallor. Normocephalic, atraumatic. No pharyngeal erythema. No thyromegaly. CARDIOVASCULAR: S1 and S2 present. No murmurs, rubs, or gallops. PULMONARY: Chest is clear to auscultation, no wheezing or crackles. ABDOMEN: Soft, nontender, nondistended, normoactive bowel sounds. No palpable organomegaly. MUSCULOSKELETAL: No joint swelling or deformity. EXTREMITIES: No cyanosis, clubbing, or pedal edema. NEUROLOGICAL: Gross neurological examination did not reveal any focal deficits. SKIN: No rashes. Assessment and plan COVID-19 infection Exertional dyspnea Chest pain History of atrial fibrillation Monitor vital signs Monitor CBC Monitor CMP Continue telemetry monitoring Monitor troponins Encourage use of I-S Aggressive pulmonary hygiene Continue COVID-19 isolation Resume home meds Cardiology following, ordered Lexiscan and 2-D echo In regards to hypertension continue Toprol Regards to hyperlipidemia continue statin Labs and medication were reviewed.. Continue same treatment. Continue with symptomatic treatment. Resume home medication. Monitor labs and vitals. DVT and GI prophylaxis. Further recommendations as per clinical course of the patient Dictation was produced using [employer] dictation software. please excuse any grammatical, word or spelling errors. Objective - Vital Signs Vital signs: Vital Signs Temp 98.7 F 09/23/23 08:39 Pulse 65 09/23/23 08:39 Resp 16 09/23/23 08:39 BP 114/68 09/23/23 08:39 Pulse Ox 97 09/23/23 08:39 FiO2 Intake & Output 09/22/23 09/23/23 09/23/23 18:59 06:59 18:59 Weight 81.647 kg 81.647 kg Other: Voiding Method Toilet # Voids 1 - Labs CBC & Chem 7: 09/22/23 10:41 09/22/23 10:41 Labs: Abnormal Lab Results - Last 24 Hours (Table) 09/22/23 09/22/23 09/23/23 Range/Units 10:40 10:41 05:06 WBC 12.0 H (3.8-10.6) k/uL Monocytes # 1.2 H (0-1.0) k/uL Triglycerides 152.00 H (0.00-149.00) mg/dL SARS-CoV-2 (PCR) Detected A (Not Detectd)
[2023-09-24] MEDS: fentaNYL (PF) 50 MCG/1 ML VIAL IVP ONE ×2 (12:53→13:04)
[2023-09-24] MEDS: MIDAZOLAM 2 MG/2 ML VIAL IVP ONE ×2 (12:53→12:58)
--- NOTE | 2023-09-24 12:53 | P.PN ---
Subjective Progress Note Date: 09/24/23 patient is 68-year-old gentleman with past medical history significant for atrial fibrillation status post ablation, hypertension from the ER for intermittent chest pressure and exertional dyspnea. Patient stated that for the last few weeks he has been noticing that he gets short of breath on exertion, patient states that going up a flight of stairs gets him totally winded. At that time of exertion,patient also notices that there is a chest pressure which is central in location, nonradiating, aggravated by exertion and no relieving factors associated with this chest pressure. Patient denies any complaint of palpitations. Denies any orthopnea or PND. There is no swelling of any feet. For the last 2 days patient has been noticing some chest congestion but denied any fever or chills. Because of these symptoms, patient presented to the PCP office who sent him to the ER. Initial lab work done in the ER showed WBC 12, hemoglobin 15.2, platelet count 275, sodium 138, potassium 4.1, BUNs 19, creatinine 0.67, AST 38, AST 36 Influenza A not detected Influenza B not detected RSV not detected COVID-19 detected Chest x-ray done in the ER showed no acute cardiopulmonary process Patient admitted to internal medicine service 09/23. Patient seen and examined. No further episodes of chest pain, scheduled for stress test today 09/24. Patient seen and examined. Stress test done showed stress-induced reversible ischemia at the apex and apical anterior myocardium. Cardiology planning cardiac cath. Denies any further episodes of chest pain. Still complaining of shortness of breath on exertion. Denies any palpitation. Vital signs stable REVIEW OF SYSTEMS: CONSTITUTIONAL: No fever, no malaise,. CARDIOVASCULAR: As mentioned above PULMONARY: As mentioned above GASTROINTESTINAL: No diarrhea, no nausea, no vomiting, no abdominal pain. NEUROLOGICAL: No headaches, no weakness, PHYSICAL EXAMINATION: GENERAL: The patient is alert and oriented x3, not in any acute distress. Well developed, well nourished. HEENT: Pupils are round and equally reacting to light. EOMI. No scleral icterus. No conjunctival pallor. Normocephalic, atraumatic. No pharyngeal erythema. No thyromegaly. CARDIOVASCULAR: S1 and S2 present. No murmurs, rubs, or gallops. PULMONARY: Chest is clear to auscultation, no wheezing or crackles. ABDOMEN: Soft, nontender, nondistended, normoactive bowel sounds. No palpable organomegaly. MUSCULOSKELETAL: No joint swelling or deformity. EXTREMITIES: No cyanosis, clubbing, or pedal edema. NEUROLOGICAL: Gross neurological examination did not reveal any focal deficits. SKIN: No rashes. Assessment and plan Abnormal stress test COVID-19 infection Exertional dyspnea Chest pain History of atrial fibrillation Monitor vital signs Monitor CBC Monitor CMP Continue telemetry monitoring Monitor troponins Encourage use of I-S Aggressive pulmonary hygiene Continue COVID-19 isolation Cardiology following, Stress test done showed stress-induced reversible ischemia at the apex and apical anterior myocardium. Cardiology planning cardiac cath, currently nothing by mouth, going for procedure this afternoon In regards to hypertension continue Toprol Regards to hyperlipidemia continue statin Labs and medication were reviewed.. Continue same treatment. Continue with symptomatic treatment. Resume home medication. Monitor labs and vitals. DVT and GI prophylaxis. Further recommendations as per clinical course of the patient Dictation was produced using [employer] dictation software. please excuse any grammatical, word or spelling errors. Objective - Vital Signs Vital signs: Vital Signs Temp 98.5 F 09/24/23 07:00 Pulse 70 09/24/23 07:00 Resp 16 09/24/23 07:00 BP 151/88 09/24/23 07:00 Pulse Ox 97 09/24/23 07:00 FiO2 Intake & Output 09/23/23 09/24/23 09/24/23 18:59 06:59 18:59 Intake Total 358 Balance 358 Intake: Oral 358 Other: Voiding Method Toilet # Voids 2 2 - Labs CBC & Chem 7: 09/22/23 10:41 09/22/23 10:41 Labs: Abnormal Lab Results - Last 24 Hours (Table) 09/23/23 Range/Units 05:06 Triglycerides 152.00 H (0.00-149.00) mg/dL
[2023-09-24] MEDS ORDERED: LIDOCAINE 1% INJ 10MG/ML (20 ML MDV) SQ ONE (12:57)
[2023-09-24] MEDS: VERAPAMIL SYRINGE (5 MG/10 ML) INTRAARTER ONE ×2 (12:58→13:01)
[2023-09-24] MEDS ORDERED: MIDAZOLAM 2 MG/2 ML VIAL IVP ONE (13:04)
[2023-09-24] MEDS: HEPARIN SODIUM 1,000 UN/ML (10ML VL) IV ONE ×4 (13:05→14:10)
[2023-09-24] MEDS ORDERED: TICAGRELOR 90 MG TAB ONE (13:21)
[2023-09-24] MEDS ORDERED: TICAGRELOR 90 MG TAB PO ONE (13:24)
[2023-09-24] MEDS ORDERED: NITROGLYCERIN 1000MCG/10ML SYRINGE INTRACORON ONE (13:37)
[2023-09-24] MEDS ORDERED: IOPAMIDOL-370 100ML BTL INJ ONE ×2 (13:47→14:21)
[2023-09-24] MEDS: ASPIRIN 325 MG TAB PO SCH (16:21)
[2023-09-24] MEDS ORDERED: MAG HYDROX/AL HYDROX/SIMETH 30 ML CUP PO PRN (16:34)
[2023-09-24] MEDS ORDERED: ATROPINE SULFATE 0.1 MG/ML 10ML SYRINGE IV PRN (16:34)
[2023-09-24] MEDS ORDERED: ZOLPIDEM 5 MG TAB PO PRN (16:34)
[2023-09-24] MEDS ORDERED: RX INFO: IV CONTRAST WAS GIVEN 1 EACH MISC MISCELLANE PRN (16:34)
--- NOTE | 2023-09-24 16:43 | P.PRCINT ---
Percutaneous Coronary Int. - Percutaneous Coronary Intervention Percutaneous Coronary Intervention: PROCEDURES PERFORMED: Left heart catheterization, bilateral coronary angiography, ultrasound guided arterial access, PCI of proximal to mid LAD with overlapping 3.5 x 33mm and 3.0 x 38mm Xience MAGDA, post dilated with a 3.75 NC balloon, IVUS LAD INDICATION: Unstable angina CONSENT:I have discussed the risks, benefits and alternative therapies for the above-mentioned procedure and for both sedation/analgesia as well as necessary blood product administration, if indicated, as they pertain to this patient. The patient has indicated understanding and acceptance of the risks and procedures discussed. PROCEDURE: After the risks, benefits and alternatives of the above mentioned procedure explained in detail with the patient, informed consent was obtained. Patient was taken to the catheterization lab and prepped and draped in usual fashion. Ultrasound guidance was used to assess for arterial access. 1% lidocaine was used to anesthetize the right radial artery. A 6-Samoan sheath was placed in the right radial artery using modified Seldinger technique and ultrasound guidance. Left coronary angiography was performed with a 5-Samoan JL 3.5 catheter and right coronary angiography was performed with a 5-Samoan AR2 catheter in various views. A 5-Samoan AR2 catheter was inserted into the left ventricle and pressure measurements were obtained. The decision was made to perform PCI of the LAD. A 6-Samoan CLS 4.0 guide was using gauge the left main. A 0.014 BMW wire was advanced in the diagonal 1 branch and a second 0.014 whisper wire was advanced in the distal LAD. Predilation was performed with a 2.5 balloon. Next intravascular ultrasound was performed which showed diffuse long area of disease with more proximal segment reference vessel 3.75 mm and distally 3.0 mm. Next predilation was performed with a 3.0 noncompliant balloon. Next a 3.0 x 38 mm Xience MAGDA was placed in the mid to distal LAD and a 3.5 x 33 mm Xience MAGDA was placed in the proximal LAD into mid LAD overlapping the first stent. On IVUS the disease came back proximal to the diagonal 1 branch and therefore decision was made to cover the diagonal branch. Repeat intravascular ultrasound showed no dissection with some underexpansion and therefore a 3.75 noncompliant balloon was used to post dilate the proximal and mid stent. Repeat intravascular ultrasound showed good stent apposition with no dissection. The wire was pulled and final angiograms were performed. Prentervention there was 99% stenosis and CHRISTIAN 2 flow and postintervention there was less than 10% stenosis with CHRISTIAN 3 flow. The right radial sheath was removed and a TR band was placed with hemostasis achieved. The patient tolerated the procedure well. Patient was transported back to the post catheterization holding area in stable condition. Conscious Sedation: Patient was monitored under the direct supervision of myself for conscious sedation using Versed and fentanyl for a total duration of 74 minutes HEMODYNAMICS: Aorta: 126/78 LV: 121/7, LVEDP 16 SELECTIVE CORONARY ARTERIOGRAPHY: LEFT MAIN: The left main is a large caliber vessel which bifurcates into the LAD and circumflex. There is no significant stenosis. LEFT ANTERIOR DESCENDING CORONARY ARTERY: LAD is a large caliber vessel which wraps around to the apex. There is a long area just past diagonal 1 branch of mid LAD 90-99% stenosis with distal LAD appearing only have mild disease. LEFT CIRCUMFLEX CORONARY ARTERY: Left circumflex is a moderate caliber vessel with mild tender 20% stenosis. RIGHT CORONARY ARTERY: The right coronary artery is a large caliber vessel which gives off a PDA and PLV branch and is the dominant vessel. There is a distal RCA 70% stenosis just before the bifurcation of the PDA and PLV. FINAL IMPRESSION: 1. CAD as described above including 99% mid LAD stenosis, 70% RCA stenosis 2. S/p PCI of proximal to mid LAD with overlapping 3.5 x 33mm and 3.0 x 38mm Xience MAGDA, post dilated with a 3.75 NC balloon 3. Normal left sided filling pressures PLAN: 1. Aggressive risk factor modification per most recent ACC/AHA guidelines. 2. If still having significant angina-type symptoms consider further assessment of RCA disease however no significant ischemia noted on recent stress testing. Possibility of balanced ischemia however and monitor clinically. 3. Continue dual antiplatelets with aspirin and Brillinta for 12 months given u nstable angina.
[2023-09-24] MEDS: SODIUM CHLORIDE 0.9% 1,000 ML in EMPTY BAG 1 BAG IV SCH ×2 (19:56→22:14)
[2023-09-24] MEDS: TICAGRELOR 90 MG TAB PO SCH (20:45)
[2023-09-25 04:33] VITALS: PULSE 68; RESP 16
[2023-09-25] MEDS: PANTOPRAZOLE 40 MG TABLET PO SCH (05:42)
[2023-09-25 07:28] LABS: African American GFR (CKD) >90 (>60 ml/min/1.73 sqM); Non-African American GFR(CKD) >90 (>60 ml/min/1.73 sqM)
[2023-09-25 07:53] LABS: ALT 29 U/L (4-49); AST 46 U/L (17-59); Albumin 3.6 g/dL (3.5-5.0); Albumin/Globulin Ratio 1.3; Alkaline Phosphatase 64 U/L (38-126); Anion Gap 11 mmol/L; Blood Urea Nitrogen 12 mg/dL (9-20); Calcium 8.8 mg/dL (8.4-10.2); Carbon Dioxide 21 mmol/L (22-30); Chloride 103 mmol/L (98-107); Globulin 2.8 g/dL; Glucose 120 mg/dL (74-99); Potassium 3.9 mmol/L (3.5-5.1); Sodium 135 mmol/L (137-145); Total Bilirubin 0.9 mg/dL (0.2-1.3); Total Protein 6.4 g/dL (6.3-8.2)
[2023-09-25] MEDS: TICAGRELOR 90 MG TAB PO SCH (08:20)
[2023-09-25] MEDS: guaiFENesin 600 MG TABLET.ER PO SCH (08:20)
[2023-09-25] MEDS: ATORVASTATIN 40 MG TAB PO SCH (08:21)
[2023-09-25] MEDS: MULTIVITAMINS, THERA 1 EACH TAB PO SCH (08:21)
[2023-09-25] MEDS: HYDROcodone/APAP 10-325MG 1 EACH TAB PO SCH (08:26)
[2023-09-25] MEDS ORDERED: METOPROLOL SUCCINATE (ER) 25 MG TAB.ER.24H PO SCH (09:00)
[2023-09-25] MEDS ORDERED: ASPIRIN 325 MG TAB PO SCH (09:00)
[2023-09-25] MEDS ORDERED: ASPIRIN 81 MG PO SCH (09:00)
[2023-09-25 10:36] VITALS: BP 133/87; TEMP 98.7
--- NOTE | 2023-09-25 10:52 | P.PN ---
Subjective Progress Note Date: 09/25/23 History of present illness: This is a 68-year-old male patient with past medical history of dyslipidemia, SVT status post radiofrequency ablation. Patient was seen in the office by Dr. DALY Renteria in 2016 on 1 occasion following SVT radiofrequency ablation. We have been asked to evaluate the patient for chest pain. Patient denies any recent cardiac workup. He was seen by his PCP yesterday and sent to the hospital. Patient states that he developed chest pain about one week ago was happening when he had little activity. He also has some minimal shortness of breath. He states he never had this before but he's been having about 1 time every day. It does come on with activity. He states he's had a cough for a couple of days. No fever, no generalized malaise. The pain is coming and going but not worse with movement or deep breathing. He has remote history of tobacco use, he drinks alcohol frequently. He also smokes marijuana. EKG: sinus rhythm with no acute changes Chest x-ray: No acute process. WBC 12, hemoglobin 15.2, platelet count 275. CMP within normal limits. Troponin negative 3. A1c 5.6. Influenza A, influenza B, RSV not detected. Covid 19 detected. Triglycerides 152, cholesterol 147, LDL 71, HDL 45. Home cardiac medications: Metoprolol tartrate 25 mg daily, Crestor 20 mg daily. 09/24/2023 Lexiscan stress test revealed stress-induced reversible ischemia apex and apical anterior myocardium. Echocardiogram with EF 6065 %, no significant valvular dysfunction. He reports that he is feeling okay today just mild congestion. He still has ch est pain that is worse with exertion that has been going on for the past 7-10 days. He is concerned because he had dental implants on Tuesday and has not had his prescribed mouth wash regimen, he denies any bleeding issues from the implants. 09/25/2023 Left heart cath yesterday revealed CAD including 99% mid LAD stenosis, 70% RCA stenosis; S/p PCI of proximal to mid LAD with overlapping 3.5 x 33mm and 3.0 x 38mm Xience MAGDA. He was started on aspirin and brillinta for 12 months. He has not had any further chest pain since last night. No shortness of breath. Physical examination: Gen: This is a 68-year-old male resting in the chair and appears to be comfortable and in no acute distress. VS: reviewed HEENT: Head is atraumatic, normocephalic. Pupils equal, round. Sclerae is anicteric. NECK: Supple. No JVD. LUNGS: Clear to auscultation. No wheezes or rhonchi. No intercostal retractions. HEART: Regular rate and rhythm. No murmur. ABDOMEN: Soft No tenderness. EXTREMITIES: No pedal edema. No calf tenderness. Right radial site with no hematoma or bruising, distal pulses palpable. NEUROLOGICAL: Patient is awake, alert and oriented x3. Assessment: Chest pain concerning for underlying coronary artery disease and unstable angina Covid 19 section, mild symptoms History of SVT status post radiofrequency ablation Dyslipidemia Abnormal stress test CAD with 99% mid LAD stenosis, 70% RCA stenosis; S/p PCI of proximal to mid LAD with overlapping 3.5 x 33mm and 3.0 x 38mm Xience MAGDA, post dilated with a 3.75 NC balloon Plan: Continue aspirin and Brillinta for 12 months given unstable angina. If he is still having angina type symptoms may consider further assessment of RCA. Continue current medications. Okay to discharge home from cardiology [facility]. Follow-up in office in 1 week. Medication compliance was emphasized. Return to emergency department for any worsening of symptoms. Nurse practitioner note has been reviewed, I agree with documented findings and plan of care. Patient was seen and examined. Objective - Vital Signs Vital signs: Vital Signs Temp 98.7 F 09/25/23 07:00 Pulse 68 09/25/23 08:00 Resp 16 09/25/23 08:00 BP 133/87 09/25/23 07:00 Pulse Ox 96 09/25/23 07:00 FiO2 Intake & Output 09/24/23 09/25/23 09/25/23 18:59 06:59 18:59 Intake Total 290 240 Balance 290 240 Intake: IV 50 Oral 240 240 Other: Voiding Method Toilet Toilet Toilet # Voids 3 2 1 - Labs CBC & Chem 7: 09/22/23 10:41 09/25/23 06:44 Labs: Abnormal Lab Results - Last 24 Hours (Table) 09/25/23 Range/Units 06:44 Sodium 135 L (137-145) mmol/L Carbon Dioxide 21 L (22-30) mmol/L Creatinine 0.52 L (0.66-1.25) mg/dL Glucose 120 H (74-99) mg/dL
[2023-09-25 11:41] LABS: HCT 41.9 % (39.6-50.0); HGB 14.8 g/dL (13.0-17.0); MCH 31.9 pg (27.0-32.0); MCHC 35.3 g/dL (32.0-37.0); MCV 90.3 FL (80.0-97.0); Mean Platelet Volume 8.6 FL (9.5-12.2); NRBC Per 100 WBC 0 X 10*3/uL (0.00-0.01); Platelet Count 237 X 10*3/uL (140-440); RBC 4.64 X 10*6/uL (4.40-5.60); WBC 11.71 X 10*3/uL (4.50-10.00)
--- NOTE | 2023-09-25 12:13 | P.DS ---
Providers Date of admission: 09/22/23 13:24 Expected date of discharge: 09/25/23 Attending physician: Kristian Leon MD Consults: 09/22/23 13:24 Consult Physician Urgent Consulting Provider: Shalom Oro Consult Reason/Comments: Chest pain Do you want consulting provider notified?: Yes 09/24/23 16:34 Consult Physician Routine Consulting Provider: Shalom Oro Consult Reason/Comments: Post Interventional Patient Do you want consulting provider notified?: Already Contacted Primary care physician: Robert Griffith [facility] Course: Discharge diagnoses; Abnormal stress test Unstable angina COVID-19 infection Exertional dyspnea Chest pain History of atrial fibrillation Hospital course; patient is 68-year-old gentleman with past medical history significant for atrial fibrillation status post ablation, hypertension from the ER for intermittent chest pressure and exertional dyspnea. Patient stated that for the last few weeks he has been noticing that he gets short of breath on exertion, patient states that going up a flight of stairs gets him totally winded. At that time of exertion,patient also notices that there is a chest pressure which is central in location, nonradiating, aggravated by exertion and no relieving factors associated with this chest pressure. Patient denies any complaint of palpitations. Denies any orthopnea or PND. There is no swelling of any feet. For the last 2 days patient has been noticing some chest congestion but denied any fever or chills. Because of these symptoms, patient presented to the PCP office who sent him to the ER. Initial lab work done in the ER showed WBC 12, hemoglobin 15.2, platelet count 275, sodium 138, potassium 4.1, BUNs 19, creatinine 0.67, AST 38, AST 36 Influenza A not detected Influenza B not detected RSV not detected COVID-19 detected Chest x-ray done in the ER showed no acute cardiopulmonary process Patient admitted to internal medicine service 09/23. Patient seen and examined. No further episodes of chest pain, scheduled for stress test today 09/24. Patient seen and examined. Stress test done showed stress-induced reversible ischemia at the apex and apical anterior myocardium. Cardiology planning cardiac cath. Denies any further episodes of chest pain. Still complaining of shortness of breath on exertion. Denies any palpitation. Vital signs stable 09/25. Patient seen and examined. Status post PCI of proximal to mid LAD with overlapping 3.5 x 33mm and 3.0 x 38mm Xience MAGDA. Cardiology recommended discharging patient on dual antiplatelet therapy. PHYSICAL EXAMINATION: GENERAL: The patient is alert and oriented x3, not in any acute distress. Well developed, well nourished. HEENT: Pupils are round and equally reacting to light. EOMI. No scleral icterus. No conjunctival pallor. Normocephalic, atraumatic. No pharyngeal erythema. No thyromegaly. CARDIOVASCULAR: S1 and S2 present. No murmurs, rubs, or gallops. PULMONARY: Chest is clear to auscultation, no wheezing or crackles. ABDOMEN: Soft, nontender, nondistended, normoactive bowel sounds. No palpable organomegaly. MUSCULOSKELETAL: No joint swelling or deformity. EXTREMITIES: No cyanosis, clubbing, or pedal edema. NEUROLOGICAL: Gross neurological examination did not reveal any focal deficits. SKIN: No rashes. Dictation was produced using [employer] dictation software. please excuse any grammatical, word or spelling errors. Patient Condition at Discharge: Good Plan - Discharge Summary Discharge Rx Participant: Yes New Discharge Prescriptions: New Aspirin 81 mg PO DAILY 30 Days #30 tab Ticagrelor [Brilinta] 90 mg PO BID 30 Days #60 tab Continue Omeprazole [PriLOSEC] 20 mg PO DAILY Metoprolol Tartrate [Lopressor] 25 mg PO DAILY Hydrocodone/Acetaminophen [Hydrocodone/Acetaminophen 10-300 mg] 1 tab PO BID Multivitamins, Thera [Multivitamin (formulary)] 1 tab PO DAILY Rosuvastatin [Crestor] 20 mg PO DAILY Discontinued Meloxicam [Mobic] 7.5 mg PO DAILY Discharge Medication List Omeprazole [PriLOSEC] 20 mg PO DAILY 10/29/15 [History] Metoprolol Tartrate [Lopressor] 25 mg PO DAILY 11/27/15 [History] Hydrocodone/Acetaminophen [Hydrocodone/Acetaminophen 10-300 mg] 1 tab PO BID 09/22/23 [History] Multivitamins, Thera [Multivitamin (formulary)] 1 tab PO DAILY 09/22/23 [History] Rosuvastatin [Crestor] 20 mg PO DAILY 09/22/23 [History] Aspirin 81 mg PO DAILY 30 Days #30 tab 09/25/23 [Rx] Ticagrelor [Brilinta] 90 mg PO BID 30 Days #60 tab 09/25/23 [Rx] Follow up Appointment(s)/Referral(s): Akira Escamilla MD [Medical Doctor] - 1 Week Robert Griffith DO [Primary Care Provider] - 1-2 days Discharge Disposition: HOME SELF-CARE
[2023-09-26] MEDS ORDERED: ATORVASTATIN 40 MG TAB PO ONE (06:00)
[2023-09-26] MEDS ORDERED: ASPIRIN 325 MG TAB PO ONE (06:00)
[2023-09-26] MEDS ORDERED: ATORVASTATIN 80 MG TAB PO ONE (07:00)
== END 2023-09-25 12:32 | disposition home or self-care (01) | DRG 321 ==
LOC: EC 09:56 → 6NMEDSUR 13:24 → OBSVTOIN 09-24 08:49 → UNDODISOB 09-25 12:32
PROVIDERS: ADMIT Internal Medicine; ATTEND Internal Medicine
PROC: B240ZZ3 Ultrasonography of Single Coronary Artery, Intravascular (ICD-10-PCS; principal; 2023-09-24 12:30)
PROC: 027035Z Dilation of Coronary Artery, One Artery with Two Drug-eluting Intraluminal Devices, Percutaneous Approach (ICD-10-PCS; principal; 2023-09-24 12:30)
PROC: B2111ZZ Fluoroscopy of Multiple Coronary Arteries using Low Osmolar Contrast (ICD-10-PCS; principal; 2023-09-24 12:30)
PROC: 4A023N7 Measurement of Cardiac Sampling and Pressure, Left Heart, Percutaneous Approach (ICD-10-PCS; principal; 2023-09-24 12:30)
PROC: 8E0ZXY6 Isolation (ICD-10-PCS; 2023-09-24 12:30)
DX: I25.110 Atherosclerotic heart disease of native coronary artery with unstable angina pectoris (principal); U07.1 COVID-19; E78.5 Hyperlipidemia, unspecified; I10 Essential (primary) hypertension; I48.91 Unspecified atrial fibrillation; K44.9 Diaphragmatic hernia without obstruction or gangrene; K21.9 Gastro-esophageal reflux disease without esophagitis; Z78.9 Other specified health status; Z79.1 Long term (current) use of non-steroidal anti-inflammatories (NSAID); Z79.899 Other long term (current) drug therapy; Z91.81 History of falling
CPT/HCPCS: 36415; 71046; 76937; 78452; 80053; 80061; 83036; 83880; 84443; 84484; 85025; 85027; 85379; 87636; 92978; 93005; 93017; 93308; 93458; 94640; 99285

== ENCOUNTER → 2023-11-02 | Outpatient (CLI) | payer MEDICARE ==
--- NOTE | 2023-11-02 11:53 | XR ---
EXAMINATION TYPE: XR chest 2V DATE OF EXAM: 11/02/2023 11:48 AM CLINICAL INDICATION:Male, 68 years old with history of R09.89OTH SYMPTOMS AND SIGNS INVOLVING THE CIR C AN; PHH COMPARISON: Chest radiographs from 09/22/2023 TECHNIQUE: XR chest 2V Frontal and lateral views of the chest. FINDINGS: Lungs/Pleura: There is no evidence of pleural effusion, focal consolidation, or pneumothorax. Pulmonary vascularity: Unremarkable. Heart/mediastinum: Cardiomediastinal silhouette is unremarkable. Musculoskeletal: No acute osseous pathology. IMPRESSION: No acute cardiopulmonary disease/process.
== END | disposition home or self-care (01) ==
LOC: RADXRMAIN 11:40
PROVIDERS: ATTEND Family Medicine
DX: R09.89 Other specified symptoms and signs involving the circulatory and respiratory systems (principal)
CPT/HCPCS: 71046

== ENCOUNTER → 2023-11-30 | Outpatient (CLI) | payer MEDICARE ==
[2023-11-30 12:18] LABS: African American GFR (CKD) >90 (>60 ml/min/1.73 sqM); Blood Urea Nitrogen 15 mg/dL (9-20); Non-African American GFR(CKD) >90 (>60 ml/min/1.73 sqM)
--- NOTE | 2023-11-30 12:52 | CT ---
EXAMINATION TYPE: CT abdomen w con DATE OF EXAM: 11/30/2023 COMPARISON: None available. HISTORY: Right upper quadrant pain. CT DLP: 938.5 mGycm Automated exposure control for dose reduction was used. TECHNIQUE: Helical acquisition of images was performed from the lung bases through the top of iliac crest to include entire abdomen. CONTRAST: Performed with Oral Contrast and with IV Contrast, patient injected with 100ml mL of Isovue 300. FINDINGS: LUNG BASES: There are severe partially visualized coronary artery calcifications. The visualized lung bases otherwise appear clear. There are no pleural or pericardial effusions. Moderate-sized Boch[place] k hernia containing only fat on the right side is also noted. LIVER/GB: No significant abnormality is appreciated. PANCREAS: No significant abnormality is seen. SPLEEN: No significant abnormality is seen. ADRENALS: No significant abnormality is seen. KIDNEYS: No significant abnormality is seen. BOWEL: There is moderate colonic diverticulosis seen within the visualized portions of the colon wit hout evidence of diverticulitis. There is a small sliding hiatal hernia. LYMPH NODES: No significant abnormality is seen. OSSEOUS STRUCTURES: Scattered degenerative disc and facet changes are seen throughout the spine. The re are no acute osseous abnormalities. FREE AIR: No free air is visualized. OTHER: There is significant vascular calcification and mild plaque seen throughout the abdominal aort a without evidence of aneurysmal dilation or dissection. IMPRESSION: 1. NO ACUTE PROCESS SEEN WITHIN THE ABDOMEN. 2. FAT-CONTAINING [place] HERNIA ON THE RIGHT SIDE. 3. SMALL HIATAL HERNIA. 4. SEVERE CORONARY ARTERY CALCIFICATIONS. 5. DIVERTICULOSIS WITHOUT EVIDENCE OF DIVERTICULITIS.
== END | disposition home or self-care (01) ==
LOC: RADCTMAIN 11:10
PROVIDERS: ATTEND Family Medicine
DX: R10.11 Right upper quadrant pain (principal); K44.9 Diaphragmatic hernia without obstruction or gangrene; I25.10 Atherosclerotic heart disease of native coronary artery without angina pectoris; K57.90 Diverticulosis of intestine, part unspecified, without perforation or abscess without bleeding
CPT/HCPCS: 82565; 84520; 74160; 36415; Q9967

== ENCOUNTER 2025-01-09 08:41 | Day surgery (SDC) | payer MEDICARE ==
[2025-01-08 12:16] VITALS: BMI 28.3
--- NOTE | 2025-01-09 08:34 | P.GSHP ---
History of Present Illness H&P Date: 01/09/25 CHIEF COMPLAINT: Colon screen HISTORY OF PRESENT ILLNESS: The patient is a 69-year-old male who presents for colon screen. Lower endoscopy was offered for further evaluation and management. PAST MEDICAL HISTORY: Please see list. PAST SURGICAL HISTORY: Please see list. MEDICATIONS: Please see list. ALLERGIES: Please see list. SOCIAL HISTORY: No illicit drug use FAMILY HISTORY: No reports of Crohn disease or ulcerative colitis. REVIEW OF ORGAN SYSTEMS: CONSTITUTIONAL: No reports of fevers or chills. PHYSICAL EXAM: VITAL SIGNS: Stable GENERAL: Well-developed pleasant in no acute distress. HEENT: No scleral icterus. Extraocular movements grossly intact. Moist buccal mucosa. NECK: Supple without lymphadenopathy. CHEST: Unlabored respirations. Equal bilateral excursions. CARDIOVASCULAR: Regular rate and rhythm. Distal 2+ pulses. ABDOMEN: Soft, nontender, nondistended. MUSCULOSKELETAL: No clubbing, cyanosis, or edema. ASSESSMENT: 1. Colon screen. PLAN: 1. Recommend proceeding with a lower endoscopy Past Medical History Past Medical History: GERD/Reflux, Hyperlipidemia, Skin Disorder Additional Past Medical History / Comment(s): "rapid heart rate one time", fell in 2012 and landed on head with cervical fxs. hiatal hernia, rash on fingers, recent infectiion on rt little toe. History of Any Multi-Drug Resistant Organisms: MRSA Date of last positivie culture/infection: 2009 MDRO Source:: finger Past Surgical History: Cardiac Ablation, Heart Catheterization With Stent, Orthopedic Surgery Additional Past Surgical History / Comment(s): rt knee surgery , EGD with dilation, Pain Clinic Procedures Past Anesthesia/Blood Transfusion Reactions: No Reported Reaction Date of Last Stent Placement:: unknown Smoking Status: Former smoker - Past Family History Mother Family Medical History: No Reported History Medications and Allergies Home Medications Medication Instructions Recorded Confirmed Type Omeprazole [PriLOSEC] 20 mg PO DAILY 10/29/15 01/08/25 History Metoprolol Tartrate [Lopressor] 25 mg PO DAILY 11/27/15 01/08/25 History Hydrocodone/Acetaminophen 1 tab PO BID 09/22/23 01/08/25 History [Hydrocodone/Acetaminophen 10-300 mg] Multivitamins, Thera [Multivitamin 1 tab PO DAILY 09/22/23 01/08/25 History (formulary)] Rosuvastatin [Crestor] 20 mg PO DAILY 09/22/23 01/08/25 History Aspirin 81 mg PO DAILY 30 Days #30 tab 09/25/23 01/08/25 Rx Clopidogrel [Plavix] 75 mg PO DAILY 01/08/25 01/08/25 History Allergies Allergy/AdvReac Type Severity Reaction Status Date / Time No Known Allergies Allergy Verified 01/08/25 11:54
[2025-01-09 09:12] VITALS: TEMP 96.8
[2025-01-09] MEDS: LACTATED RINGERS 1,000 ML IV ONE (09:25)
[2025-01-09] MEDS ORDERED: PROPOFOL 10 MG/ML 20 ML VIAL IV ONE (09:28)
[2025-01-09] MEDS ORDERED: LIDOCAINE 1% INJ 10MG/ML (20 ML MDV) ONE (09:28)
--- NOTE | 2025-01-09 10:03 | P.PCN ---
Date of Procedure: 01/09/25 Description of Procedure: PREOPERATIVE DIAGNOSIS: Personal history of colon polyps Colonoscopy screening. POSTOPERATIVE DIAGNOSIS: Colonoscopy screening. Diverticulosis, scattered. Internal/external hemorrhoid, grade 2 OPERATION: Colonoscopy to the cecum, ileocecal valve and appendiceal orifice. SURGEON: Nidia Abad MD. ANESTHESIA: MAC. INDICATIONS: The patient is a 69-year-old male who presents for colonoscopy screening. Last colonoscopy 5 years ago. Benefits and risks were described and informed consent was obtained. DESCRIPTION OF PROCEDURE: The patient had undergone GoLytely prep. The patient had been brought into the operating room and laid in the left lateral decubitus position. After adequate intravenous sedation, the rectum was examined with 2% lidocaine jelly. No external hemorrhoids were encountered. The rectal tone was within normal limits. No lesions were palpated in the rectal vault. An Olympus colonoscope was advanced until the cecum, ileocecal valve and appendiceal orifice were clearly viewed. The prep was good. Scattered diverticulosis was encountered. No co lonic polyps were found. No evidence of focal colitis was found. Retroflexion of the scope demonstrated grade 1 internal hemorrhoids without active bleeding or inflammation. The colon was desufflated. The patient had tolerated the procedure well. Withdrawal time was over 6 minutes. FINDINGS: Aronchick preparation quality scale 2 (1-5) Internal hemorrhoids, grade 1 No external prolapsed hemorrhoids. No arteriovenous malformations. No adenomatous polyps. No focal colitis. Moderate sigmoid diverticulosis with redundant sigmoid colon requiring abdominal pressure RECOMMENDATIONS: Lower endoscopy in 5 years2029 Plan - Discharge Summary Discharge Rx Participant: Yes New Discharge Prescriptions: Continue Omeprazole [PriLOSEC] 20 mg PO DAILY Metoprolol Tartrate [Lopressor] 25 mg PO DAILY Hydrocodone/Acetaminophen [Hydrocodone/Acetaminophen 10-300 mg] 1 tab PO BID Clopidogrel [Plavix] 75 mg PO DAILY Rosuvastatin [Crestor] 20 mg PO DAILY Aspirin 81 mg PO DAILY 30 Days #30 tab Discharge Medication List Omeprazole [PriLOSEC] 20 mg PO DAILY 10/29/15 [History] Metoprolol Tartrate [Lopressor] 25 mg PO DAILY 11/27/15 [History] Hydrocodone/Acetaminophen [Hydrocodone/Acetaminophen 10-300 mg] 1 tab PO BID 09/22/23 [History] Rosuvastatin [Crestor] 20 mg PO DAILY 09/22/23 [History] Aspirin 81 mg PO DAILY 30 Days #30 tab 09/25/23 [Rx] Clopidogrel [Plavix] 75 mg PO DAILY 01/08/25 [History] Follow up Appointment(s)/Referral(s): Nidia Abad MD [STAFF PHYSICIAN] - As Needed Patient Instructions/Handouts: Diverticulosis (GEN) Activity/Diet/Wound Care/Special Instructions: May resume all blood thinners. Repeat colonoscopy 5 years, 2030 Discharge Disposition: HOME SELF-CARE
[2025-01-09 10:20] VITALS: BP 134/89; PULSE 58; RESP 16
== END 2025-01-09 10:29 | disposition home or self-care (01) ==
LOC: ORWHC2ENDO 08:41
PROVIDERS: ATTEND Surgery Plastic and Reconstructive Surgery
DX: Z12.11 Encounter for screening for malignant neoplasm of colon (principal); Z86.0100 Personal history of colon polyps, unspecified; K57.30 Diverticulosis of large intestine without perforation or abscess without bleeding; K64.0 First degree hemorrhoids; K64.4 Residual hemorrhoidal skin tags; Z79.82 Long term (current) use of aspirin; Z87.891 Personal history of nicotine dependence; Z79.02 Long term (current) use of antithrombotics/antiplatelets; E78.5 Hyperlipidemia, unspecified
CPT/HCPCS: 45378; J2003; J2704